=== PATIENT | male | born 1970 | race Caucasian/White ===

== ENCOUNTER 2017-05-11 08:00 | Outpatient (CLI) | payer BC | END 2017-05-11 08:01 | disposition home or self-care (01) | LOC: BICMRI 08:00 | PROVIDERS: ATTEND Physician Assistant | DX: M47.22 Other spondylosis with radiculopathy, cervical region (principal) | CPT/HCPCS: 72141 ==

== ENCOUNTER 2017-05-30 08:42 | Outpatient (CLI) | payer BC ==
--- NOTE | 2017-05-30 12:34 | RAD ---
RIGHT SHOULDER ARTHROGRAM: INDICATIONS: Right shoulder pain. TECHNIQUE: Informed consent was obtained. I personally injected the right shoulder with diluted Gadolinium solu tion, utilizing the sterile technique and fluoroscopic guidance. The patient tolerated the injection without difficulty. Total fluoroscopic time was 0.4 minutes with total exposure 29.3 mGy per m2. FINDINGS: The right shoulder appears radiographically normal. AC joint and glenohumeral joint are normal appea ring. The visualized right lung is clear. IMPRESSION: Successful right shoulder arthrogram. POS: [facility]
--- NOTE | 2017-05-30 13:26 | MRI ---
MR ARTHROGRAM OF THE RIGHT SHOULDER: INDICATION: Right shoulder pain. TECHNIQUE: Multiplanar, multisequence MR images were obtained of the right shoulder following intraarticular adm inistration of dual-lead Gadolinium solution. FINDINGS: There is a linear partial thickness type II SLAP tear involving the superior glenoid labrum. There i s some intrasubstance degenerative signal involving the biceps anchor without evidence of discrete te ar. The biceps tendon is located. The inferior glenolabral ligamentous complex is intact. There is suspicion for a full-thickness tear involving the inferior glenoid labrum on image 11 of series 6 and image 11 of series 4. No apparent labral tear extension is evident within the posterior glenoid lab rum. There is a partial-thickness articular surface tear involving the anterior to mid supraspinatus at th e footprint measuring 1.6 x 1.3 cm greatest mediolateral AP dimensions respectively. There is mild t o moderate tendinosis of the posterior supraspinatus and infraspinatus tendons. No muscular atrophy is evident. A small amount of Gadolinium signal intensity seen within the subscapularis tendon whic h is likely related to injection technique. Glenohumeral articular surface appears within normal stallworth its. There is mild AC joint hypertrophy. IMPRESSION: 1. Partial-thickness articular surface tear involving the anterior mid supraspinatus involving appr oximately 50% of the tendon thickness. 2. Mild to moderate supraspinatus tendinosis. 3. Type II superior labrum anterior to posterior tear with some type I degenerative signal involving the biceps anchor. 4. Small full-thickness tear involving the inferior glenoid labrum on image 11 of series 4. POS: [facility]
== END 2017-05-30 08:43 | disposition home or self-care (01) ==
LOC: RAD 08:42
PROVIDERS: ATTEND Orthopaedic Surgery
DX: M25.511 Pain in right shoulder (principal); S46.811A Strain of other muscles, fascia and tendons at shoulder and upper arm level, right arm, initial encounter; M67.813 Other specified disorders of tendon, right shoulder; S43.491A Other sprain of right shoulder joint, initial encounter
CPT/HCPCS: 23350

== ENCOUNTER 2017-08-01 15:51 | Outpatient (CLI) | payer BC ==
[2017-08-01 17:22] LABS: Hemoglobin 13.4 g/dL (14.0-18.0); Mean Corpuscular HGB CONC 34.7 g/dL (32.0-36.0); Mean Corpuscular Hemoglobin 29.7 pg (27.0-31.0); Mean Corpuscular Volume 85.7 fl (80.0-94.0); Mean Platelet Volume 8.1 fL (7.4-10.4); Platelet Count 384 thou/uL (130-400); RBC Distribution Width 12.4 % (11.5-14.5); Red Blood Cell (RBC) Count 4.52 mill/uL (4.70-6.10); White Blood Cell (WBC) Count 12.7 thou/uL (4.8-10.8)
[2017-08-01 17:28] LABS: PTT 27.1 SEC (22.9-36.1); Prothrombin Time 13.1 SEC (12.0-14.7)
[2017-08-01 17:47] LABS: Anion Gap 12 mmol/L (10-20); BUN (Urea Nitrogen) 14 mg/dL (8.9-20.6); Calc. Creatinine Clearance 0 mL/min (70-130); Calcium 9.7 mg/dL (7.8-10.44); Carbon Dioxide 24 mmol/L (22-29); Chloride 100 mmol/L (98-107); Estimated GFR-MDRD Greater than 90; Glucose 88 mg/dL (70-105); Potassium 3.9 mmol/L (3.5-5.1); Sodium 132 mmol/L (136-145)
--- NOTE | 2017-08-03 08:08 | EKG ---
Test Reason : Blood Pressure : / mmHG Vent. Rate : 086 BPM Atrial Rate : 086 BPM P-R Int : 128 ms QRS Dur : 094 ms QT Int : 354 ms P-R-T Axes : 063 038 031 degrees QTc Int : 423 ms Normal sinus rhythm RSR' or QR pattern in V1 suggests right ventricular conduction delay Borderline ECG When compared with ECG of 24-DEC-2010 18:36, No significant change was found Confirmed by CASSANDRA EVANGELISTA ([id number]) on 08/03/2017 8:08:19 AM Referred By: ABRAHAN Confirmed By:CASSANDRA EVANGELISTA
== END 2017-08-01 15:52 | disposition home or self-care (01) ==
LOC: LABBT 15:51
PROVIDERS: ATTEND Surgery
DX: Z01.818 Encounter for other preprocedural examination (principal); M50.10 Cervical disc disorder with radiculopathy, unspecified cervical region
CPT/HCPCS: 80048; 85027; 85610; 85730; 93005; 93010

== ENCOUNTER 2017-08-04 12:42 | Day surgery (SDC) | payer BC ==
[2017-08-01 16:18] VITALS: BMI 33.6
[2017-08-04] MEDS ORDERED: CEFAZOLIN/Water 2 GM/20 ML SYRINGE ONE (14:13)
[2017-08-04] MEDS ORDERED: Sodium Chloride 0.9% 10 ML ONE (16:19)
[2017-08-04] MEDS ORDERED: Thrombin 5000 UNITS/5 ML VIAL ONE (16:19)
[2017-08-04] MEDS ORDERED: Dexamethasone 20 MG/5 ML VIAL ONE ×2 (16:20)
[2017-08-04] MEDS ORDERED: PROPOFOL 200 MG/20 ML VIAL ONE (16:20)
[2017-08-04] MEDS ORDERED: Lidocaine 1% PF 5 ML VIAL ONE (16:20)
[2017-08-04] MEDS ORDERED: Glycopyrrolate 0.2 MG/ML 5 ML SYRINGE ONE (16:20)
[2017-08-04] MEDS ORDERED: diphenhydrAMINE 50 MG/ML VIAL ONE (16:20)
[2017-08-04] MEDS ORDERED: Fentanyl 250 MCG/5 ML VIAL ONE (16:23)
[2017-08-04] MEDS ORDERED: HYDROmorphone 2 MG/ML VIAL SLOW IVP PRN ×2 (18:13)
[2017-08-04] MEDS ORDERED: Promethazine HCl 25 MG/ML VIAL SLOW IVP PRN ×2 (18:13)
[2017-08-04] MEDS ORDERED: Ondansetron HCl/PF 4 MG/2 ML Vial IVP PRN ×2 (18:13)
[2017-08-04] MEDS ORDERED: Promethazine HCl 25 MG/ML VIAL IM PRN ×3 (18:13→19:02)
[2017-08-04] MEDS ORDERED: Sodium Chloride 0.9% 1,000 ML IV SCH (19:00)
[2017-08-04] MEDS ORDERED: Acetaminophen 325 MG TAB PO PRN (19:02)
[2017-08-04] MEDS ORDERED: HYDROcodone/Acetaminophen 7.5/325 mg Tablet PO PRN (19:02)
[2017-08-04] MEDS ORDERED: Mag-Al 1200 mg/1200 mg/30 ML UDCUP PO PRN (19:02)
[2017-08-04] MEDS ORDERED: Acetaminophen/Codeine 30-300mg Tablet PO PRN (19:02)
[2017-08-04] MEDS ORDERED: Bisacodyl 10 MG SUPP PR PRN (19:02)
[2017-08-04] MEDS ORDERED: tiZANidine HCl 4 MG TAB PO PRN (19:02)
[2017-08-04] MEDS ORDERED: traMADol HCl 50 MG TAB PO PRN (19:02)
[2017-08-04] MEDS ORDERED: Fleet Enema 133 ML BOT PR PRN (19:02)
[2017-08-04] MEDS ORDERED: Milk Of Magnesia 30 ML UDCUP PO PRN (19:02)
[2017-08-04] MEDS ORDERED: Fentanyl 100 MCG/2 ML VIAL ONE ×2 (19:10→19:24)
[2017-08-04] MEDS: CEFAZOLIN/Water 2 GM/20 ML SYRINGE SLOW IVP SCH (20:58)
[2017-08-04] MEDS ORDERED: ALPRAZolam 0.25 MG TAB PO SCH (21:00)
[2017-08-04] MEDS ORDERED: Lisinopril 20 MG TAB PO SCH (21:00)
[2017-08-04] MEDS ORDERED: Pravastatin Sodium 20 MG TAB PO SCH (21:00)
[2017-08-05] MEDS: Morphine 4 MG/ML VIAL SLOW IVP PRN ×2 (02:59→05:14)
[2017-08-05] MEDS: CEFAZOLIN/Water 2 GM/20 ML SYRINGE SLOW IVP SCH (05:13)
[2017-08-05] MEDS ORDERED: Gemfibrozil 600 MG TAB PO SCH (07:30)
[2017-08-05 08:04] VITALS: BP 100/65; TEMP 98
--- NOTE | 2017-08-05 19:31 | PRG ---
DATE OF SERVICE: 08/05/2017 Mr. Ramos is postoperative day #1 from ACDF, he was doing very well with improvement in his arm pa in. He has obviously neck soreness related to surgery. His drain output has been minimal, strength is excellent. We will dismiss him whenever intraoperative and postoperative issues.
--- NOTE | 2017-08-08 08:46 | OP ---
DATE OF PROCEDURE: 08/04/2017 SURGEON: Dr. Osvaldo Corrigan CAREER AND TECHNOLOGY EDUCATION TEACHER: Jay Rausch PA-C. PREPROCEDURE DIAGNOSES: Cervical stenosis with neck and arm pain. POSTPROCEDURE DIAGNOSES: Cervical stenosis with neck and arm pain. WOUND: Type 1 wound. PROCEDURE: 1. C5-C6, C6-C7 anterior diskectomies for decompression of spinal cord and C6 and C7 nerve roots. 2. Preparation of the endplates C5-C6, C6-C7 for arthrodesis with placement of intervertebral spacer , C5-C6, C6-C7 for arthrodesis. 3. Use of autograft and allograft packed into the interbody spacers for arthrodesis. 4. Anterior cervical plate and screw fixation at C5, C6, and C7. 5. Use of operative microscope for microdissection. PROCEDURE: After informed consent was obtained from the patient, the patient brought to OR. Proper patient pause identification was carried out. He was placed under excellent endotracheal anesthesia and positioned supine on the OR table. Right anterior oblique saeid was drawn out in the right anteri or neck. This region was sterilely cleansed, prepared, and draped. Proper patient pause and identif ication carried out. The wound was then opened with a combination of sharp, monopolar and blunt diss ection, we proceeded lateral to the tracheoesophageal bundle medial to the right carotid sheath. We identified the prevertebral layer of deep cervical fascia and the longus colli muscles. These were s wept laterally. Localization film confirmed our area of interest. We then performed distraction at C5-C6 and diskectomy was performed at C5-C6 with use of the operative microscope for microdissection. We had excellent decompression of the common dural tube and the C6 nerve root and spacer was placed , following preparation of the endplates packed with autograft and allograft for intervertebral arthr odesis. We then performed a distraction at C6-C7 and diskectomy was performed there as well with dec ompression of spinal cord and C7 nerve roots. Endplates were prepared, interbody spacer placed again , packed with autograft and allograft for arthrodesis. The microscope was then removed. We were sat isfied with our construct, thus far, anterior cervical plate and screw fixation occurred at C5, C6, C 7. The wound was copiously irrigated and meticulous hemostasis obtained throughout. The wound was t hen closed in anatomic layers over a drain. The patient then emerged from anesthesia.
== END 2017-08-05 10:15 | disposition home or self-care (01) ==
LOC: SDC 12:42 → SJJU 19:20 → SDC 08-05 10:15
PROVIDERS: ATTEND Surgery
DX: M48.02 Spinal stenosis, cervical region (principal); M54.12 Radiculopathy, cervical region; I10 Essential (primary) hypertension; E78.5 Hyperlipidemia, unspecified; G47.30 Sleep apnea, unspecified; Z79.82 Long term (current) use of aspirin; Z79.899 Other long term (current) drug therapy; Z99.89 Dependence on other enabling machines and devices
CPT/HCPCS: 76001; 96374; A4216; C1713; C1776; J1100; J1200; J2001; J2270; J2704; J3010; J3490

== ENCOUNTER 2017-09-21 09:44 | Outpatient (CLI) | payer BC ==
--- NOTE | 2017-09-21 12:33 | RAD ---
CERVICAL SPINE THREE VIEWS: History: 47-year-old male with history of neck pain and radiculopathy. Prior anterior cervical fusion. Comparison: None. FINDINGS: Anterior cervical fusion changes noted at C5, C6, and C7. Minimal generalized spondylosis. No signifi cant malalignment. No abnormal prevertebral soft tissue swelling. Portions of the C1 and tip of the o dontoid is obscured on the AP open mouth view and portions of C6, C7, and T1 are partially obscured o n the lateral view. IMPRESSION: Anterior cervical fusion changes at C5, C6, and C7. Generalized spondylosis. No significant malalignm ent. POS: [facility] [place]
== END 2017-09-21 09:45 | disposition home or self-care (01) ==
LOC: TBSIIMAG 09:44
PROVIDERS: ATTEND Surgery
DX: M47.892 Other spondylosis, cervical region (principal); Z98.1 Arthrodesis status
CPT/HCPCS: 72040

== ENCOUNTER 2022-02-11 19:30 | Outpatient (CLI) | payer BC | END 2022-02-11 19:31 | disposition home or self-care (01) | LOC: SLEEPLAB 19:30 | PROVIDERS: ATTEND Physician Assistant | DX: G47.33 Obstructive sleep apnea (adult) (pediatric) (principal); R53.83 Other fatigue; R40.0 Somnolence; R09.89 Other specified symptoms and signs involving the circulatory and respiratory systems; F41.9 Anxiety disorder, unspecified; E66.9 Obesity, unspecified; R06.83 Snoring; I10 Essential (primary) hypertension; I25.10 Atherosclerotic heart disease of native coronary artery without angina pectoris; Z68.35 Body mass index [BMI] 35.0-35.9, adult | CPT/HCPCS: 95811 ==

== ENCOUNTER 2023-09-05 10:35 | Outpatient (CLI) | payer BC | END 2023-09-05 10:36 | disposition home or self-care (01) | LOC: SCSMRI 10:35 | PROVIDERS: ATTEND Physician Assistant | DX: M54.42 Lumbago with sciatica, left side (principal); R29.898 Other symptoms and signs involving the musculoskeletal system; M47.816 Spondylosis without myelopathy or radiculopathy, lumbar region; M47.815 Spondylosis without myelopathy or radiculopathy, thoracolumbar region; M47.817 Spondylosis without myelopathy or radiculopathy, lumbosacral region | CPT/HCPCS: 72148 ==